=== PATIENT | male | born 1985 | race African-American/Black ===

== ENCOUNTER 2017-10-30 08:59 | Emergency (ER) | payer MEDICAID ==
[~2017-10-30] VITALS: Ht 177.8 cm; Wt 88.5 kg
[2017-10-30 09:09] VITALS: BP_SYST 148
[2017-10-30] MEDS ORDERED: DIPH-TET-PERTUS Vaccine 0.5 ML VIAL (ADACEL) I.M. ONE (09:45)
[2017-10-30 10:12] VITALS: BP_SYST 132
== END 2017-10-30 10:07 | disposition home or self-care (01) ==
LOC: SED 08:59
DX: S66.329A Laceration of extensor muscle, fascia and tendon of unspecified finger at wrist and hand level, initial encounter (principal); R03.0 Elevated blood-pressure reading, without diagnosis of hypertension; W26.0XXA Contact with knife, initial encounter; Y93.89 Activity, other specified; Y92.89 Other specified places as the place of occurrence of the external cause; Y99.8 Other external cause status
CPT/HCPCS: 90715; 99283